=== PATIENT | male | born 1955 | race Hispanic/Latino ===

== ENCOUNTER 2020-07-24 09:29 | Day surgery (SDC) | payer OTHER ==
[2020-07-24] MEDS ORDERED: LACTATED RINGERS 1,000 ML IV SCH (10:30)
--- NOTE | 2020-07-24 10:44 | Anesthesia Day of Surgery ---
Anesthesia Day of Surgery - Day of Surgery Patient Examined: Yes Patient H&P Reviewed: Yes Patient is NPO: Yes
--- NOTE | 2020-07-24 10:51 | Anesthesia Consultation ---
Anesthesia Consult and Med Hx Date of service: 07/24/20 - Airway Anesthetic Teeth Evaluation: Good ROM Head & Neck: Adequate Mental/Hyoid Distance: Adequate Mallampati Class: Class II Intubation Access Assessment: Probably Good - Pre-Operative Health Status ASA Pre-Surgery Classification: ASA2 Proposed Anesthetic Plan: General - Pulmonary Hx Respiratory Symptoms: No (+2FS) - Cardiovascular System Hx Hypertension: No - Endocrine Hx Renal Disease: Yes (Stones) - Other Systems Hx Obesity: No
[2020-07-24] MEDS ORDERED: HYDROmorphone 1 MG/1 ML INJ IV PRN ×2 (11:00)
[2020-07-24] MEDS ORDERED: ONDANSETRON 4 MG/2 ML INJ IV PRN (11:00)
[2020-07-24] MEDS ORDERED: MIDAZOLAM 2 MG/2 ML INJ IV NR (11:26)
[2020-07-24] MEDS ORDERED: propofoL 200 MG/20 ML VIAL IV ONE (11:57)
[2020-07-24] MEDS ORDERED: HYDROmorphone 1 MG/1 ML INJ ONE (11:57)
[2020-07-24] MEDS ORDERED: LIDOCAINE MPF (2%) 20 MG/1 ML VIAL 5 ML ONE (11:58)
[2020-07-24] MEDS ORDERED: PHENYLEPHRINE/NS 1,000 MCG/10 ML SYRINGE (OR USE) IV ONE (12:55)
[2020-07-24] MEDS ORDERED: ONDANSETRON 4 MG/2 ML INJ ONE (12:58)
--- NOTE | 2020-07-24 13:30 | Short Stay Summary ---
Short Stay Documentation Date of service: 07/24/20 - History H&P: obtained from office - Allergies and Medications Current Medications: Allergies Penicillins Allergy (Verified 07/24/20 13:19) Rash ALL GOUT MEDICATIONS Allergy (Uncoded 07/24/20 11:22) Rash Home Medications Medication Instructions Recorded Confirmed Last Taken Type Cholecalciferol (Vitamin D3) 5,000 unit PO DAILY 07/24/20 07/24/20 07/21/20 History [Vitamin D3] Lanse-3S/Dha/Epa/Fish Oil [Fish 1 each PO QDAY 07/24/20 07/24/20 07/22/20 History Oil Lanse-3 Softgel] Ondansetron HCl [Zofran] 4 mg PO Q12HR 07/24/20 07/24/20 07/23/20 History oxyCODONE /ACETAMINOPHEN [Percocet 1 tab PO Q6HR PRN 07/24/20 07/24/20 07/23/20 History 5/325] Active Medications Hydromorphone HCl (Hydromorphone 1 Mg/1 Ml Inj) 0.25 mg IV Q10MIN PRN PRN Reason: Pain, Moderate (4-6) Stop: 07/24/20 17:00 Hydromorphone HCl (Hydromorphone 1 Mg/1 Ml Inj) 0.5 mg IV Q10MIN PRN PRN Reason: Pain , Severe (7-10) Stop: 07/24/20 17:00 Levofloxacin/Dextrose (Levaquin 500mg/100ml) 500 mg in 100 mls @ 100 mls/hr IV PREOP CHERELLE; Protocol Stop: 07/24/20 21:00 Lactated Ringer's (Lactated Ringers) 1,000 mls @ 100 mls/hr IV DIRECT CHERELLE Last Admin: 07/24/20 11:27 Dose: 100 mls/hr Documented by: Midazolam HCl (Midazolam 2 Mg/2 Ml Inj) 2 mg IV PREOP NR Stop: 07/24/20 23:59 Ondansetron HCl (Ondansetron 4 Mg/2 Ml Inj) 4 mg IV ONCE PRN PRN Reason: Nausea And Vomiting Stop: 07/24/20 17:00 - Brief post op/procedure progress note Date of procedure: 07/24/20 Pre-op diagnosis: left ureteral stone---12mm Post-op diagnosis: same Procedure: eswl ---stage Anesthesia: GETA Surgeon: SIMON ANGEL Estimated blood loss: none Condition: stable - Hospital course Hospital course: pio bliss, post op info on chart - Disposition Condition at discharge: Stable Disposition: DC-01 TO HOME OR SELFCARE Short Stay Discharge Plan Follow up with: JONATHAN MARVIN MD [Primary Care Provider] - 7 Days
--- NOTE | 2020-07-24 13:39 | Operative Report ---
PREOPERATIVE DIAGNOSIS: Left proximal ureteral stone, 12 mm. POSTOPERATIVE DIAGNOSIS: Left proximal ureteral stone, 12 mm. PROCEDURE: Left extracorporal shock wave lithotripsy, staged procedure. SURGEON: Farhat Casiano MD ANESTHESIA: General. ESTIMATED BLOOD LOSS: Minimal. FLUIDS: Crystalloid. COMPLICATIONS: No complications. INDICATIONS: This patient is a 65-year-old gentleman seen by Dr. Og in the office with a history of stones. Recent CT of abdomen and pelvis 07/22 at outpatient imaging revealed 12 mm left stone at L3. He also has a 6 mm stone in the right renal pelvis. We discussed options. He has left-sided pain. He agreed to proceed with lithotripsy. DESCRIPTION OF PROCEDURE: The patient was taken to the operative suite, placed in a supine position. After adequate general anesthesia, placed in ____. Stone was localized in 2 planes using fluoroscopy. Extracorporal shock wave lithotripsy was administered with a maximum kV of 8, 2500 shocks. Some fragmentation of the stone could be appreciated. He tolerated the procedure well, was extubated and taken to recovery room. He will go home on [place] and Flomax and follow up in the office. JOB# [id number] C/NTS
[2020-07-24 14:23] VITALS: BP 133/96
--- NOTE | 2020-07-24 14:45 | Post Anesthesia Evaluation ---
- Post Anesthesia Evaluation Patient Participated: Yes Airway Patent: Yes Stable Respiratory Function: Yes Nausea/Vomiting: No Temp > 96.8F: Yes Pain Manageable: Yes Adequeate Hydration: Yes Anesthesia Complications: No Block Receding Appropriately: Not Applicable Patient on Ventilator: No
== END 2020-07-24 09:30 | disposition home or self-care (01) ==
LOC: OR 09:29
PROVIDERS: ATTEND Urology
DX: N20.1 Calculus of ureter (principal); Z88.0 Allergy status to penicillin; Z88.8 Allergy status to other drugs, medicaments and biological substances; Z79.899 Other long term (current) drug therapy; Z87.891 Personal history of nicotine dependence; Z72.89 Other problems related to lifestyle; Z85.820 Personal history of malignant melanoma of skin
CPT/HCPCS: 50590; J1170; J1956; J2250; J2370; J2405; J2704; J7120